=== PATIENT | male | born 1985 ===

== ENCOUNTER 2021-01-04 10:46 | Emergency (ER) | payer BC ==
[2021-01-04] MEDS ORDERED: Sodium Chloride 0.9% 1,000 ML IV ONE (11:51)
[2021-01-04] MEDS ORDERED: Ketorolac 30 MG/ML SDV IVPUSH ONE (11:52)
--- NOTE | 2021-01-04 11:54 | EDM.PDOC ---
ED HPI GENERAL MEDICAL PROBLEM - General Chief Complaint: Abdominal Pain Stated Complaint: LOWER STOMACH PAIN Time Seen by Provider: 01/04/21 11:48 Source of Information: Reports: Patient History Limitations: Reports: No Limitations - History of Present Illness INITIAL COMMENTS - FREE TEXT/NARRATIVE: Patient is a 35-year-old male with history of kidney stone presents today for left lower quadrant pain. Patient states that pain started this morning's been constant of the left lower quadrant nonradiating not made better or worse with anything he is a very achy feeling. Patient patient still have bowel movements and passing gas he said no blood in his urine this morning. Patient to see feels nauseous but no vomiting patient has no other complaints. ED ROS GENERAL - Review of Systems Review Of Systems: See Below Constitutional: Reports: No Symptoms HEENT: Reports: No Symptoms Respiratory: Reports: No Symptoms Cardiovascular: Reports: No Symptoms Endocrine: Reports: No Symptoms GI/Abdominal: Reports: Abdominal Pain : Reports: No Symptoms Musculoskeletal: Reports: No Symptoms Skin: Reports: No Symptoms Neurological: Reports: No Symptoms Psychiatric: Reports: No Symptoms Hematologic/Lymphatic: Reports: No Symptoms Immunologic: Reports: No Symptoms ED EXAM, GI/ABD - Physical Exam Exam: See Below Exam Limited By: No Limitations General Appearance: Alert, WD/WN, No Apparent Distress Eyes: Bilateral: EOMI Throat/Mouth: Normal Inspection Head: Atraumatic, Normocephalic Respiratory/Chest: No Respiratory Distress, Lungs Clear, Normal Breath Sounds Cardiovascular: Normal Peripheral Pulses GI/Abdominal Exam: Normal Bowel Sounds, Soft, Non-Tender Back Exam: Normal Inspection. No: CVA Tenderness (L), CVA Tenderness (R) Extremities: Normal Inspection, Normal Range of Motion Neurological: Alert, Oriented, CN II-XII Intact, Normal Cognition, Normal Gait Skin Exam: Warm Course - Vital Signs Last Recorded V/S: Last Vital Signs Temp 96.9 F 01/04/21 12:06 Pulse 65 01/04/21 12:06 Resp 16 01/04/21 12:06 BP 136/77 01/04/21 12:06 Pulse Ox 99 01/04/21 12:06 - Orders/Labs/Meds Labs: Laboratory Tests 01/04/21 01/04/21 01/04/21 Range/Units 11:28 11:28 11:28 WBC 3.72 L (4.0-11.0) K/uL RBC 4.42 L (4.50-5.90) M/uL Hgb 13.3 (13.0-17.0) g/dL Hct 37.9 L (38.0-50.0) % MCV 85.7 (80.0-98.0) fL MCH 30.1 (27.0-32.0) pg MCHC 35.1 (31.0-37.0) g/dL RDW Std Deviation 41.0 (28.0-62.0) fl RDW Coeff of Kain 13 (11.0-15.0) % Plt Count 246 (150-400) K/uL MPV 10.20 (7.40-12.00) fL Neut % (Auto) 30.7 L (48.0-80.0) % Lymph % (Auto) 55.6 H (16.0-40.0) % [place] % (Auto) 8.9 (0.0-15.0) % Eos % (Auto) 4.3 (0.0-7.0) % Baso % (Auto) 0.5 (0.0-1.5) % Neut # (Auto) 1.1 L (1.4-5.7) K/uL Lymph # (Auto) 2.1 (0.6-2.4) K/uL [place] # (Auto) 0.3 (0.0-0.8) K/uL Eos # (Auto) 0.2 (0.0-0.7) K/uL Baso # (Auto) 0.0 (0.0-0.1) K/uL Nucleated RBC % 0.0 /100WBC Nucleated RBCs # 0 K/uL INR 1.38 APTT 21.2 (18.6-31.3) SEC Sodium 138 (136-148) mmol/L Potassium 4.0 (3.5-5.1) mmol/L Chloride 104 (98-107) mmol/L Carbon Dioxide 27.0 (21.0-32.0) mmol/L BUN 17 (7.0-18.0) mg/dL Creatinine 1.0 (0.8-1.3) mg/dL Est Cr Clr Drug Dosing TNP Estimated GFR (MDRD) > 60.0 ml/min Glucose 125 H (74-106) mg/dL Calcium 8.2 L (8.5-10.1) mg/dL Total Bilirubin 1.1 H (0.2-1.0) mg/dL AST 21 (15-37) IU/L ALT 27 (14-63) IU/L Alkaline Phosphatase 64 (46-116) U/L Total Protein 7.7 (6.4-8.2) g/dL Albumin 3.8 (3.4-5.0) g/dL Globulin 3.9 (2.6-4.0) g/dL Albumin/Globulin Ratio 1.0 (0.9-1.6) Lipase 73 (73-393) U/L Urine Color Urine Appearance Urine pH (5.0-8.0) Ur Specific Hum[place] (1.001-1.035) Urine Protein (NEGATIVE) mg/dL Urine Glucose (UA) (NEGATIVE) mg/dL Urine Ketones (NEGATIVE) mg/dL Urine Occult Blood (NEGATIVE) Urine Nitrite (NEGATIVE) Urine Bilirubin (NEGATIVE) Urine Urobilinogen (<2.0) EU/dL Ur Leukocyte Esterase (NEGATIVE) Urine RBC (0-2/HPF) Urine WBC (0-5/HPF) Ur Epithelial Cells (NONE-FEW) Urine Bacteria (NEGATIVE) 01/04/21 Range/Units 12:15 WBC (4.0-11.0) K/uL RBC (4.50-5.90) M/uL Hgb (13.0-17.0) g/dL Hct (38.0-50.0) % MCV (80.0-98.0) fL MCH (27.0-32.0) pg MCHC (31.0-37.0) g/dL RDW Std Deviation (28.0-62.0) fl RDW Coeff of Kain (11.0-15.0) % Plt Count (150-400) K/uL MPV (7.40-12.00) fL Neut % (Auto) (48.0-80.0) % Lymph % (Auto) (16.0-40.0) % [place] % (Auto) (0.0-15.0) % Eos % (Auto) (0.0-7.0) % Baso % (Auto) (0.0-1.5) % Neut # (Auto) (1.4-5.7) K/uL Lymph # (Auto) (0.6-2.4) K/uL [place] # (Auto) (0.0-0.8) K/uL Eos # (Auto) (0.0-0.7) K/uL Baso # (Auto) (0.0-0.1) K/uL Nucleated RBC % /100WBC Nucleated RBCs # K/uL INR APTT (18.6-31.3) SEC Sodium (136-148) mmol/L Potassium (3.5-5.1) mmol/L Chloride (98-107) mmol/L Carbon Dioxide (21.0-32.0) mmol/L BUN (7.0-18.0) mg/dL Creatinine (0.8-1.3) mg/dL Est Cr Clr Drug Dosing Estimated GFR (MDRD) ml/min Glucose (74-106) mg/dL Calcium (8.5-10.1) mg/dL Total Bilirubin (0.2-1.0) mg/dL AST (15-37) IU/L ALT (14-63) IU/L Alkaline Phosphatase (46-116) U/L Total Protein (6.4-8.2) g/dL Albumin (3.4-5.0) g/dL Globulin (2.6-4.0) g/dL Albumin/Globulin Ratio (0.9-1.6) Lipase (73-393) U/L Urine Color DARK YELLOW Urine Appearance SLT CLOUDY Urine pH 6.0 (5.0-8.0) Ur Specific [place] >= 1.030 (1.001-1.035) Urine Protein TRACE H (NEGATIVE) mg/dL Urine Glucose (UA) NEGATIVE (NEGATIVE) mg/dL Urine Ketones NEGATIVE (NEGATIVE) mg/dL Urine Occult Blood LARGE H (NEGATIVE) Urine Nitrite NEGATIVE (NEGATIVE) Urine Bilirubin NEGATIVE (NEGATIVE) Urine Urobilinogen 0.2 (<2.0) EU/dL Ur Leukocyte Esterase NEGATIVE (NEGATIVE) Urine RBC 90-100 (0-2/HPF) Urine WBC 0-2 (0-5/HPF) Ur Epithelial Cells RARE (NONE-FEW) Urine Bacteria RARE (NEGATIVE) Meds: Medications Discontinued Medications Generic Name Dose Route Start Last Admin Trade Name Freq PRN Reason Stop Dose Admin Sodium Chloride 1,000 mls @ 999 mls/hr 01/04/21 11:51 01/04/21 12:19 Normal Saline IV 01/04/21 12:51 999 mls/hr .BOLUS ONE Administration Ketorolac Tromethamine 30 mg 01/04/21 11:52 01/04/21 12:19 Ketorolac 30 Mg/Ml Sdv IVPUSH 01/04/21 11:53 30 mg ONETIME ONE Administration - Re-Assessments/Exams Free Text/Narrative Re-Assessment/Exam: 01/04/21 13:41 Has a 3 mm stone with mild hydro the stone should pass. Patient able to tolerate p.o. patient will be sent home pain control. Departure - Departure Time of Disposition: 13:41 Disposition: Home, Self-Care 01 Condition: Good Clinical Impression: Renal stone - Discharge Information *PRESCRIPTION DRUG MONITORING PROGRAM REVIEWED*: Not Applicable *COPY OF PRESCRIPTION DRUG MONITORING REPORT IN PATIENT LOURDES: Not Applicable Instructions: Kidney Stones, [id number], Renal Colic, [id number] Referrals: PCP,None [Primary Care Provider] - Forms: ED Department Discharge Additional Instructions: You were seen today for left-sided abdominal pain you are found to have a kidney stone. The stone is 3 mm and should pass on its own keeping lots of fluids. We will send you home with pain meds to take tried Tylenol Motrin first that does not work then try the stronger medicine was sent home with it. Please follow-up with urologist or primary care physician if you have any other concerning signs symptom please return to the ED immediately. The following information is given to patients seen in the emergency department who are being discharged to home. This information is to outline your options for follow-up care. We provide all patients seen in our emergency department with a follow-up referral. The need for follow-up, as well as the timing and circumstances, are variable depending upon the specifics of your emergency department visit. If you don't have a primary care physician on staff, we will provide you with a referral. We always advise you to contact your personal physician following an emergency department visit to inform them of the circumstance of the visit and for follow-up with them and/or the need for any referrals to a consulting specialist. The emergency department will also refer you to a specialist when appropriate. This referral assures that you have the opportunity for follow-up care with a specialist. All of these measure are taken in an effort to provide you with optimal care, which includes your follow-up. Under all circumstances we always encourage you to contact your private physician who remains a resource for coordinating your care. When calling for follow-up care, please make the office aware that this follow-up is from your recent emergency room visit. If for any reason you are refused follow-up, please contact the [facility] Emergency Department at and asked to speak to the emergency department charge nurse. Please follow up with your primary care physician. If you do not have a primary care physician, see below: [facility] [address] [place] [id number] [facility] [address] [place] [id number] Sepsis Event Note (ED) - Focused Exam Vital Signs: Vital Signs Temp Pulse Resp BP Pulse Ox 01/04/21 12:06 96.9 F 65 16 136/77 99 - Assessment/Plan Plan: Patient is a 35-year-old male who presents today for left lower quadrant pain started this morning. Patient does have history of kidney stones this is feels similar. Patient will be given pain meds fluids and CT scan and reassess.
[2021-01-04 12:17] LABS: BLOOD UREA NITROGEN,BUN 17 mg/dL (7.0-18.0); CHLORIDE,CL 104 mmol/L (98-107); GLUCOSE RANDOM 125 mg/dL (74-106); LIPASE 73 U/L (73-393); SODIUM,NA 138 mmol/L (136-148)
--- NOTE | 2021-01-04 13:26 | CT ---
INDICATION: Left lower quadrant abdomen pain. TECHNIQUE: CT abdomen and pelvis without contrast. COMPARISON: None. FINDINGS: Lower chest: Unremarkable. Liver: Normal in size and attenuation. No suspicious masses. Gallbladder and bile ducts: No stones or inflammation. No biliary dilatation. Pancreas: Unremarkable. No mass or inflammation. Spleen: Normal in size. No masses. Adrenal glands: Normal in size. No nodules. Kidneys: A 3 mm stone in the proximal right ureter is causing minimal hydronephrosis. There are 3 additional tiny stones remaining in the left kidney. No right-sided stones. GI tract: Unremarkable. Normal in caliber. No sign of mass or inflammation. Normal appendix. Vasculature: Unremarkable. Lymph nodes: No lymphadenopathy. Abdominal wall/Omentum/Peritoneum: Unremarkable. No sign of mass or infiltration. No free air or significant free fluid. Pelvis: Unremarkable. No pelvic masses. Bones: Unremarkable for age. IMPRESSION: 3 mm stone in the proximal left ureter causing minimal hydronephrosis. Please note that all CT scans at this facility use dose modulation, iterative reconstruction, and/or weight-based dosing when appropriate to reduce radiation dose to as low as reasonably achievable. Dictated by Ilan Brandon MD @ 01/04/2021 1:25:29 PM (Electronically Signed)
== END 2021-01-04 14:02 | disposition home or self-care (01) ==
LOC: MW.ED 10:46
DX: N13.2 Hydronephrosis with renal and ureteral calculous obstruction (principal)
CPT/HCPCS: 36415; 74176; 80053; 81001; 83690; 85025; 85610; 85730; 96374; 99284; J1885; J7030